=== PATIENT | female | born 1990 | race African-American/Black ===

== ENCOUNTER 2024-05-08 20:50 | Emergency (ER) | payer SELFPAY ==
[~2024-05-08] VITALS: Ht 165.1 cm; Wt 104.3 kg
--- NOTE | 2024-05-09 00:01 | NUR ---
COVID/FLU.STREP SWABS COLLECTED
--- NOTE | 2024-05-09 00:03 | NUR ---
BIBS FROM C/O HAVING COUGH AND CONGESTION X3WK TOOK NIGHT QUILL AND TYLENOL 500MG NOW SEVERE COUGH RADIATES TO STERNUM
[2024-05-09] MEDS ORDERED: AZIT250T13 PO (01:48)
--- NOTE | 2024-05-09 02:05 | NUR ---
Patient discharged to home in stable condition. Written and verbal after care instructions given. Patient verbalizes understanding of instruction.
[2024-05-09 02:06] VITALS: BP 115/68; TEMP 98; O2SAT 99
== END 2024-05-09 02:07 | disposition home or self-care (01) ==
LOC: ER 20:52
DX: J18.9 Pneumonia, unspecified organism (principal); Z20.822 Contact with and (suspected) exposure to COVID-19
CPT/HCPCS: 71045-TC; 86403-TC; 87070-TC